=== PATIENT | female | born 1950 | race Caucasian/White ===

== ENCOUNTER → 2020-09-09 | Outpatient (CLI) | payer BC | LOC: COL.RAD 07:39 | DX: G31.9 Degenerative disease of nervous system, unspecified (principal); R25.1 Tremor, unspecified | CPT/HCPCS: A9585 ==

== ENCOUNTER → 2021-01-06 | Outpatient (CLI) | payer BC, MEDICARE, OTHER | LOC: COL.RAD 09:09 | DX: D47.2 Monoclonal gammopathy (principal) ==

== ENCOUNTER → 2022-04-13 | Outpatient (CLI) | payer MEDICARE, OTHER | LOC: MHCPAIN 09:42 | DX: M25.572 Pain in left ankle and joints of left foot (principal); M79.2 Neuralgia and neuritis, unspecified | CPT/HCPCS: G0463 ==

== ENCOUNTER → 2022-05-09 | Outpatient (CLI) | payer MEDICARE, OTHER | LOC: MHCPAIN 10:59 | DX: M25.572 Pain in left ankle and joints of left foot (principal); M79.2 Neuralgia and neuritis, unspecified | CPT/HCPCS: G0463 ==

== ENCOUNTER → 2023-02-02 | Outpatient (CLI) | payer MEDICARE, OTHER | LOC: MHCPAIN 13:42 | DX: M54.6 Pain in thoracic spine (principal); M25.512 Pain in left shoulder; Z98.1 Arthrodesis status; M79.2 Neuralgia and neuritis, unspecified | CPT/HCPCS: G0463 ==

== ENCOUNTER → 2023-02-24 | Outpatient (CLI) | payer MEDICARE, OTHER | LOC: MHCPAIN 10:21 | DX: M54.6 Pain in thoracic spine (principal); M25.512 Pain in left shoulder; Z98.1 Arthrodesis status; M79.2 Neuralgia and neuritis, unspecified; M54.2 Cervicalgia | CPT/HCPCS: G0463 ==

== ENCOUNTER → 2023-04-04 | Outpatient (CLI) | payer MEDICARE | LOC: MHCPAIN 14:54 | DX: M54.6 Pain in thoracic spine (principal); M25.511 Pain in right shoulder; M25.512 Pain in left shoulder | CPT/HCPCS: G0463 ==

== ENCOUNTER → 2023-04-27 | Outpatient (CLI) | payer MEDICARE | LOC: COL.RAD 15:15 | DX: M25.562 Pain in left knee (principal) ==

== ENCOUNTER → 2023-06-12 | Outpatient (CLI) | payer MEDICARE | LOC: MHCPAIN 14:14 | DX: M25.562 Pain in left knee (principal); G24.8 Other dystonia; Z98.1 Arthrodesis status; R07.89 Other chest pain | CPT/HCPCS: G0463 ==

== ENCOUNTER → 2023-06-27 | Outpatient (CLI) | payer MEDICARE ==
[~2023-06-27] MED LIST: NS 10 ML IV ONE
== END ==
LOC: MHCPAIN 12:51
DX: G24.8 Other dystonia (principal)
CPT/HCPCS: J0585

== ENCOUNTER 2023-07-17 07:58 | Day surgery (SDC) | payer MEDICARE ==
[~2023-07-17] VITALS: Ht 154.9 cm; Wt 66.7 kg
[~2023-07-17 07:58] MED LIST changes: +LR 1,000 ML IV SCH; -NS 10 ML IV ONE
[2023-07-17] MEDS ORDERED: PRALUENT P150 MG/1 M SQ (08:59)
[2023-07-17] MEDS ORDERED: HCTZ12.5TAB (08:59)
[2023-07-17] MEDS ORDERED: PROTONIX 40MG T40 MG PO (09:00)
[2023-07-17] MEDS ORDERED: MYRBETR50MG PO (09:02)
[2023-07-17] MEDS ORDERED: ESTRACE0.5 MG PO (09:03)
[2023-07-17] MEDS ORDERED: B-12 500 MCG PO (09:03)
[2023-07-17] MEDS ORDERED: THE MEDICINE S200 M2 PO (09:04)
[2023-07-17] MEDS ORDERED: CLARITIN 1010 MG/TAB PO (09:04)
[2023-07-17] MEDS ORDERED: MICARDIS40 MG PO (09:04)
[2023-07-17] MEDS ORDERED: PLAVIX 75MG TAB75 MG PO (09:05)
[2023-07-17] MEDS ORDERED: BYSTOLIC20 MG PO (09:05)
[2023-07-17] MEDS ORDERED: PEPCID 20MG TAB20 MG PO (09:06)
[2023-07-17] MEDS ORDERED: REQUIP3 MG PO (09:06)
[2023-07-17] MEDS ORDERED: dexAMETHasone 4 MG/ML VIAL IJ ONE (10:30)
[2023-07-17] MEDS ORDERED: Lidocaine 2% w EPI (1:100,000) 20 ML Multi-Dose VIAL IJ ONE (10:30)
[2023-07-17] MEDS ORDERED: EPINEPHrine 1 MG/1 ML Ampule IR ONE (10:30)
--- NOTE | 2023-07-17 10:40 | NUR ---
0820 Patient ambulatory to bay 2 with steady gait, breathing even and unlabored. Pt is alert and oriented, accompanied by her . Consents reviewed and signed by the patient. IV established. LR infusion via gravity at K[facility]. Call light in reach. Warm blanket provided.
[2023-07-17 10:41] VITALS: BP 149/66; PULSE 79; TEMP 97.4
[2023-07-17] MEDS ORDERED: Naloxone 0.4 MG/ML VIAL IV PRN (11:00)
[2023-07-17] MEDS ORDERED: ULTRAM 50MG TAB50 MG PO (11:03)
[2023-07-17] MEDS ORDERED: ASPIRIN 81M81 MG/TA2 PO (11:05)
[2023-07-17] MEDS ORDERED: CEPHALEXIN500 M1 PO (11:05)
[2023-07-17] MEDS ORDERED: Ondansetron 4 MG/2 ML VIAL IV PRN (11:15)
[2023-07-17] MEDS ORDERED: droPERidol 2.5 MG/ML 2 ML VIAL IV PRN (11:15)
[2023-07-17] MEDS ORDERED: hydrALAZINE 20 MG/ML 1 ML VIAL IV PRN (11:15)
[2023-07-17] MEDS ORDERED: fentaNYL 50 MCG/ML 1 ML SYRINGE/VIAL [PACU/SDC ONLY] IV PRN (11:15)
[2023-07-17] MEDS ORDERED: Morphine 2 MG/1 ML VIAL [PACU/SDC ONLY] IV PRN (11:15)
[2023-07-17] MEDS ORDERED: HYDROmorphone 1 MG/1 ML SYRINGE [PACU/SDC ONLY] IV PRN (11:15)
[2023-07-17] MEDS ORDERED: Ketorolac 15 MG/ML VIAL IV SCH (11:45)
[2023-07-17 12:20] VITALS: BP 165/77; PULSE 87; TEMP 97.5
[2023-07-17 12:30] VITALS: BP 173/80; PULSE 86
[2023-07-17 12:45] VITALS: BP 157/76; PULSE 89
--- NOTE | 2023-07-17 14:17 | NUR ---
1211 Received report from KELSEY Horvath, PACU. 1220 Patient returned to bay 2. Patient is alert and answers questions appropriately. 1242 Patient given a muffin and juice for a PO challenge. Tolerated well. 1305 Physician discharge instructions and printed patient educational materials reviewed with the patient and her . Questions invited and answered. 1345 Patient to lobby via wheelchair for a ride home with in POV.
== END 2023-07-17 13:45 | disposition home or self-care (01) ==
LOC: SDCO 07:58
DX: M23.222 Derangement of posterior horn of medial meniscus due to old tear or injury, left knee (principal)
CPT/HCPCS: J0171; J0665; J1100; J1170; J1885; J1920; J7120

== ENCOUNTER → 2023-12-19 | Outpatient (CLI) | payer MEDICARE ==
[~2023-12-19] MED LIST changes: +ASPIRIN 81M81 MG/TA2 PO; +B-12 500 MCG PO; +BYSTOLIC20 MG PO; +CEPHALEXIN500 M1 PO; +CLARITIN 1010 MG/TAB PO; +ESTRACE0.5 MG PO; +HCTZ12.5TAB; -LR 1,000 ML IV SCH; +MICARDIS40 MG PO; +MYRBETR50MG PO; +PEPCID 20MG TAB20 MG PO; +PLAVIX 75MG TAB75 MG PO; +PRALUENT P150 MG/1 M SQ; +PROTONIX 40MG T40 MG PO; +REQUIP3 MG PO; +THE MEDICINE S200 M2 PO; +ULTRAM 50MG TAB50 MG PO
== END ==
LOC: MC.RAD 08:33
DX: Z12.31 Encounter for screening mammogram for malignant neoplasm of breast (principal)